=== PATIENT | male | born 1955 | race Caucasian/White ===

== ENCOUNTER 2022-09-12 09:49 | Outpatient (CLI) | payer OTHER ==
[2022-09-12] MEDS ORDERED: Magnevist 469MG/ML 20 ML VIAL ONE (15:45)
== END 2022-09-12 09:50 | disposition home or self-care (01) ==
LOC: CSHMRI 09:49
PROVIDERS: ATTEND Internal Medicine Endocrinology, Diabetes & Metabolism
DX: E27.8 Other specified disorders of adrenal gland (principal)
CPT/HCPCS: 74183; 82565